=== PATIENT | female | born 1950 | race Caucasian/White ===

== ENCOUNTER 2022-02-28 13:56 | Emergency (ER) | payer MEDICARE, OTHER ==
[~2022-02-28] VITALS: Ht 167.6 cm; Wt 85.3 kg
[~2022-02-28 13:56] MED LIST: LEVO50TA7 PO; LORA0.5T20 PO; MULT-1018 PO
[2022-02-28] MEDS ORDERED: TRAM50TA2 PO (16:54)
[2022-02-28] MEDS ORDERED: DICL50TA2 PO (16:54)
[2022-02-28 18:00] VITALS: BP 159/94
== END 2022-02-28 16:49 | disposition home or self-care (01) ==
LOC: ER 13:56
DX: M70.10 Bursitis, unspecified hand (principal); I10 Essential (primary) hypertension; F41.9 Anxiety disorder, unspecified; Z88.0 Allergy status to penicillin; Z88.2 Allergy status to sulfonamides; Z91.040 Latex allergy status; Z90.710 Acquired absence of both cervix and uterus
CPT/HCPCS: 73030